=== PATIENT | female | born 1990 | race Caucasian/White ===

== ENCOUNTER → 2019-05-07 | Day surgery (SDC) | payer OTHER ==
[~2019-05-07] MED LIST: BLISOVI 24 FE1 EACH PO; BUPIVACAINE HCL 0.5% INJ 30 ML VIAL INJ ONE; CEFAZOLIN SOD 1 GM/NS 50ML 50 ML IV ONE; DEXAMETHASONE SOD PHOS INJ 4 MG/ML VIAL ONE; FENTANYL CITRATE/PF 100MCG/2 ML INJ ONE; HYDROMORPHONE 1MG/1ML INJ ONE; LIDOCAINE HCL 2% LOCAL INJ 5 ML SDV VIAL INJ ONE; MIDAZOLAM HCL 2 MG/2 ML VIAL ONE; MULTI-VITAMIN1 EACH PO; ONDANSETRON HCL INJ 2MG/ML 2ML 2 MG/ML VIAL ONE; PROPOFOL IV EMULSION 10 MG/ML 20 ML VIAL ONE; SEVOFLURANE INHAL SOLN 250 ML PEN BTL ONE
--- NOTE | 2019-05-07 08:12 | Operative Report ---
DATE OF PROCEDURE: 05/07/2019 SURGEON: Elizabeth Arrieta DPM PREOPERATIVE DIAGNOSIS: Painful hardware, right foot. POSTOPERATIVE DIAGNOSIS: Painful hardware, right foot. PLANNED PROCEDURE: Right removal of painful hardware. PLUGGER WORKER: None. ANESTHESIA: General with a postoperative block consisting of 10 mL of 0.5% Marcaine plain. HEMOSTASIS: Pneumatic ankle tourniquet set at 250 mmHg for a total time of approximately 15 minutes. MATERIALS: 3-0 Vicryl, 4-0 Monocryl. PATHOLOGY: None. PROCEDURE NOTE: The patient was seen in the preoperative waiting room. The correct procedure and site were identified. The patient was brought to the operating room and placed on the operating table in the supine position. General anesthesia was initiated. At this time, a well-padded pneumatic tourniquet was placed about the patient's right ankle. The right foot, ankle, and leg was scrubbed, prepped, and draped in the usual aseptic manner. The right foot, ankle, and leg was exsanguinated with an Esmarch bandage and ankle tourniquet was inflated to 250 mmHg for a total time of approximately 15 minutes. Attention was directed to the dorsal aspect of the patient's right first metatarsophalangeal joint where over the previous incision, a 5 cm linear incision was made. Incision was carried through subcutaneous tissue them from deep or underlying structures. It should be noted that scar tissue from the previous surgery was noted. The incision was carried down to the level of the first metatarsophalangeal joint where a linear capsulotomy was performed to allow for good visualization of the first metatarsal head. At this point, the two 2.0 screws were easily identified and utilizing a screwdriver, both screws were removed and passed off to the back table. It was confirmed via intraoperative fluoroscopy that there was no broken screws. Next, utilizing McGlamry elevator, the capsule released to increase range of motion. The capsule was then reapproximated in anatomical position with 3-0 Vicryl. The subcutaneous tissue with 3-0 Vicryl. The skin was closed using a running subcuticular stitch with 4-0 Monocryl. The incision site was then dressed with Adaptic, 4x4s, Kerlix, Faisal wrap, and a postop shoe. The patient tolerated the procedure and anesthesia well. The patient was transferred to the postoperative recovery room with vital signs stable and vascular status intact. The patient was monitored there for a short period time before being sent home with the following written and oral instructions. 1. Keep the dressing clean, dry, and intact. 2. The patient is to remain partial weightbearing in a Cam walker boot to avoid excessive ambulation until being seen in the office. 3. The patient is given the office number and instructed to contact us if any problems arise. SWETHA Woodward/MODL /[id number]
[2019-05-07 08:30] VITALS: BP 101/66
== END | disposition home or self-care (01) ==
LOC: OR 05:37
PROVIDERS: ATTEND Podiatrist Foot & Ankle Surgery
DX: T84.84XA Pain due to internal orthopedic prosthetic devices, implants and grafts, initial encounter (principal); F41.9 Anxiety disorder, unspecified; Z01.812 Encounter for preprocedural laboratory examination
CPT/HCPCS: 20680; 81025; J0690; J1100; J1170; J2001; J2250; J2405; J2704; J3010